=== PATIENT | female | born 1945 | race African-American/Black ===

== ENCOUNTER 2020-02-04 14:39 | Emergency (ER) | payer MEDICARE ==
[~2020-02-04] VITALS: Ht 157.5 cm; Wt 118.2 kg
[2020-02-04 14:39] VITALS: Ht 157.5 cm; Wt 118.2 kg
== END 2020-02-04 19:00 ==
LOC: D.ER 14:39
DX: I46.9 Cardiac arrest, cause unspecified (principal); R09.2 Respiratory arrest